=== PATIENT | female | born 1970 | race Caucasian/White ===

== ENCOUNTER → 2023-11-19 | Outpatient (CLI) | payer OTHER, SELFPAY ==
[2023-11-19 14:43] LABS: EXAGEN MAILED SPECIMEN
[2023-11-19 15:17] LABS: Absolute Lymphocyte Count 2.13 X10^3/uL (0.83-4.51); Absolute Neutrophil Count 4.3 X10^3/uL (2.0-7.7); Basophil# 0.04 X10^3/uL; Basophil% 0.6 % (0-1); Eosinophil# 0.03 X10^3/uL; Eosinophils% 0.4 % (0-5); Hematocrit 41.8 % (37-47); Hemoglobin 13.4 g/dL (12.0-15.0); Lymphocyte # 2.13 X10^3/ul (0.83-4.51); Lymphocyte % 30.3 % (19-41); Mean Corp Hgb Conc 32.1 g/dL (32-36); Mean Corpuscular Hgb 26.8 pg (27.0-32.0); Mean Corpuscular Volume 83.6 fL (81-99); Mean Platelet Vol. 11.9 fl (6.2-12.0); Monocyte# 0.49 X10^3/uL; NRBC Flagged by Analyzer 0 % (0-5); Neutrophil # 4.31 X10^3/uL (2.7-7.7); Neutrophil % 61.4 % (47-70); Platelet Count 272 K/mm3 (150-450); RBC Distribution Width CV 13.1 % (11.6-14.6); RBC Distribution Width SD 39.1 fl (35.1-43.9)
[2023-11-19 15:23] LABS: Color, Urine Yellow (Yellow); Glucose, Dipstick Normal (Normal); Ketone-Dipstick Negative (Negative); Leukocyte Esterase-Dipstick Negative /ul (Negative); Nitrite-Dipstick Negative (Negative); Occult Blood-Urine Negative /ul (Negative); Protein-Dipstick Negative (Negative); Urine Bilirubin Dipstick Negative (Negative); Urine Clarity Clear (Clear); Urine Urobilinogen Normal (Normal)
[2023-11-19 15:36] LABS: Protein, Urine (Random) 8.4 mg/dL (<11.9); Protein:Creat Ratio 62 mg/g CRE (0-200)
[2023-11-19 15:52] LABS: ALB/GLOB Ratio 0.8 RATIO (0.9-2.4); AST(SGOT) 29 U/L (15-37); Alanine Aminotransfer ALT/SGPT 47 U/L (13-56); Albumin, Serum 3.9 g/dL (3.2-5.0); Alkaline Phosphatase 107 U/L (45-117); Anion Gap 4 (5-15); BUN 15 mg/dL (7-18); BUN/Creat Ratio 21.7 RATIO (10-20); Calcium,Total 9.9 mg/dL (8.5-10.1); Chloride 102 mmol/L (98-107); Creatinine, Serum 0.69 mg/dL (0.55-1.02); EST Glomerular Filtration Rate 94 mL/min (>60); Est Glom Filt Rate - Afr Amer 114 mL/min (>60); Glucose 86 mg/dL (74-106); Potassium 3.8 mmol/L (3.5-5.1); Protein, Total 8.9 g/dL (6.4-8.2); Sodium Level 134 mmol/L (136-145)
[2023-11-19 16:13] LABS: Hepatitis B Surface Antibody Non-Reactive; Hepatitis B Surface Antigen Non-Reactive (Nonreactive); Hepatitis C Antibody Non-Reactive (Nonreactive)
[2023-11-22 12:08] LABS: Dilute Prothrombin Time (dPT) 35.7 sec (0.0-47.6); Dilute Russell Viper Venom 35.8 sec (0.0-47.0); Interpretation Comment: (.); PTT-LA 34.1 sec (0.0-43.5); Thrombin Time 15.8 sec (0.0-23.0); dPT Confirm Ratio 1.06 Ratio (0.00-1.34)
== END | disposition home or self-care (01) ==
LOC: MTLAB 13:39
PROVIDERS: PCP Family Medicine; Referring Provider Internal Medicine Rheumatology; Visit Provider Internal Medicine Rheumatology
DX: M06.4 Inflammatory polyarthropathy (principal); M79.7 Fibromyalgia; M21.41 Flat foot [pes planus] (acquired), right foot; M21.42 Flat foot [pes planus] (acquired), left foot; E06.3 Autoimmune thyroiditis; R76.8 Other specified abnormal immunological findings in serum; Z86.39 Personal history of other endocrine, nutritional and metabolic disease; Z87.09 Personal history of other diseases of the respiratory system
CPT/HCPCS: 36415; 80053; 81002; 82570; 84156; 85025; 86706; 86803; 87340